=== PATIENT | female | born 1955 | race Hispanic/Latino ===

== ENCOUNTER 2017-09-20 15:00 | Inpatient (IN) | payer OTHER ==
[~2017-09-20] VITALS: Ht 152.4 cm; Wt 66.3 kg
[2017-09-20 15:59] LABS: BASOPHILS % (AUTO) 0.2 % (0.0-5.0); EOSINOPHILS % (AUTO) 1.5 % (0.0-8.0); HEMATOCRIT 24.9 % (36-48); LYMPHOCYTES % (AUTO) 30.2 % (21.0-51.0); MEAN CORPUSCULAR HGB CONC 34.9 g/dL (32.0-36.0); MEAN CORPUSCULAR VOLUME 88.8 fL (79-99); MONOCYTES % (AUTO) 12.2 % (3.0-13.0); NEUTROPHILS % (AUTO) 55.9 % (40.0-77.0); PLATELET COUNT (AUTO) 54 K/uL (130-400); RED BLOOD CELL COUNT(AUTO) 2.81 MIL/uL (4.00-5.50); RED CELL DISTRIBUTION WIDTH 21.1 % (11.0-15.5); WHITE BLOOD COUNT (AUTO) 4.4 K/uL (4.8-10.8)
[2017-09-20 16:05] LABS: APPEARANCE,URINE Clear (CLEAR); BILIRUBIN,URINE Negative (NEGATIVE); COLOR,URINE Yellow (YELLOW); GLUCOSE, URINE (UA) Negative (NEGATIVE); KETONES,URINE Negative (NEGATIVE); LEUKOCYTE ESTERASE ,URINE Large (NEGATIVE); NITRATE,URINE Negative (NEGATIVE); OCCULT BLOOD,URINE Negative (NEGATIVE); PH,URINE 7.5 (5.0-8.0); PROTEIN,URINE Negative (NEGATIVE)
[2017-09-20 16:06] LABS: CREATININE 0.6 mg/dL (0.5-1.5); INR 1.23 (0.85-1.15); PARTIAL THROMBOPLASTIN TIME 28.5 SEC (26.3-35.5); POTASSIUM 4.2 mmol/L (3.5-5.1); PROTHROMBIN TIME 12.9 SEC (9.6-11.6)
[2017-09-20 16:11] LABS: ALBUMIN 2.4 g/dL (3.5-5.0); BILIRUBIN,TOTAL 1.8 mg/dL (0.2-1.0); TOTAL PROTEIN, SERUM 6.5 g/dL (6.0-8.3)
[2017-09-20 16:12] LABS: BACTERIA,URINE None Seen /HPF (None Seen); RBC,URINE None Seen /HPF (0-1)
[2017-09-20 16:14] LABS: PLATELET MORPHOLOGY COMMENT DECREASED
[2017-09-20 16:18] LABS: B-TYPE NATRIURETIC PEPTIDE 68 pg/mL (0-100)
[2017-09-20] MEDS ORDERED: VANCOMYCIN 1GM+NS 250ML 250 ML IV SCH (16:45)
[2017-09-20] MEDS ORDERED: MORPHINE SULFATE 4 MG/1ML SYG ONE (17:03)
[2017-09-20] MEDS ORDERED: ONDANSETRON HCL 4 MG/2 ML VIAL ONE (17:03)
[2017-09-20] MEDS ORDERED: VANCOMYCIN 1GM+NS 250ML 250 ML IV ONE (17:46)
[2017-09-20 20:53] VITALS: BP 135/78
[2017-09-20] MEDS: FAMOTIDINE 20MG TAB 20 MG TAB PO SCH (21:15)
[2017-09-20] MEDS: FOLIC ACID/VITAMIN B COMP W-C 1 MG CAPSULE PO SCH (21:15)
[2017-09-20] MEDS ORDERED: ONDANSETRON HCL MDV 20ML 2 MG/ML VIAL IVP PRN (21:30)
[2017-09-20 23:00] VITALS: BP 128/69
[2017-09-20] MEDS ORDERED: FERS325 PO (23:38)
[2017-09-20] MEDS ORDERED: METF500T6 PO (23:38)
[2017-09-20] MEDS ORDERED: MVIT PO (23:38)
[2017-09-21] MEDS ORDERED: DEXTROSE 50%-WATER 50 ML DISP.SYRIN IV PRN (00:30)
[2017-09-21] MEDS ORDERED: GLUCAGON 1MG KIT 1 MG ML IM PRN (00:30)
[2017-09-21] MEDS ORDERED: VANCOMYCIN PROTOCOL PER PHARMACY IV SCH (00:30)
[2017-09-21] MEDS ORDERED: VANCOMYCIN 1GM+NS 250ML 250 ML IV SCH ×2 (01:00→17:00)
[2017-09-21 03:00] VITALS: BP 116/63
[2017-09-21] MEDS: INSULIN R PO SS2 SQ SCH ×4 (06:01→20:17)
[2017-09-21 06:06] LABS: HEMATOCRIT 22.3 % (36-48); MEAN CORPUSCULAR HEMOGLOBIN 30.2 pg (27.0-33.0); MEAN CORPUSCULAR HGB CONC 33.9 g/dL (32.0-36.0); MEAN CORPUSCULAR VOLUME 89.3 fL (79-99); PLATELET COUNT (AUTO) 47 K/uL (130-400); RED CELL DISTRIBUTION WIDTH 21.2 % (11.0-15.5); WHITE BLOOD COUNT (AUTO) 3.3 K/uL (4.8-10.8)
[2017-09-21 06:18] LABS: CREATININE 0.6 mg/dL (0.5-1.5); POTASSIUM 4.1 mmol/L (3.5-5.1)
[2017-09-21 08:05] VITALS: BP 125/70
[2017-09-21] MEDS: VANCOMYCIN 1GM+NS 250ML 250 ML IV SCH ×2 (08:26→20:16)
[2017-09-21] MEDS: FERROUS SULFATE 325 MG TABLET.DR PO SCH ×2 (08:27→20:16)
[2017-09-21] MEDS ORDERED: ENOXAPARIN SODIUM 40 MG/0.4 ML SYRINGE SQ SCH (09:00)
[2017-09-21 12:03] VITALS: BP 115/64
[2017-09-21 16:27] VITALS: BP 118/58
[2017-09-21] MEDS: ACETAMINOPHEN 325 MG TAB PO PRN ×2 (17:10→20:38)
[2017-09-21 19:00] VITALS: BP 119/55
[2017-09-21 23:00] VITALS: BP 114/59
[2017-09-22 03:00] VITALS: BP 125/64
[2017-09-22] MEDS: INSULIN R PO SS2 SQ SCH ×4 (05:36→21:00)
[2017-09-22 05:47] LABS: BASOPHILS % (AUTO) 0.4 % (0.0-5.0); EOSINOPHILS % (AUTO) 2.3 % (0.0-8.0); HEMATOCRIT 22.3 % (36-48); LYMPHOCYTES % (AUTO) 31.5 % (21.0-51.0); MEAN CORPUSCULAR HEMOGLOBIN 30.9 pg (27.0-33.0); MEAN CORPUSCULAR HGB CONC 34.7 g/dL (32.0-36.0); MEAN CORPUSCULAR VOLUME 89.1 fL (79-99); NEUTROPHILS % (AUTO) 50.8 % (40.0-77.0); NUCLEATED RED BLOOD CELLS 0.1 % (0.0-0.19); PLATELET COUNT (AUTO) 46 K/uL (130-400); RED CELL DISTRIBUTION WIDTH 20.7 % (11.0-15.5); WHITE BLOOD COUNT (AUTO) 2.4 K/uL (4.8-10.8)
[2017-09-22 05:48] LABS: CREATININE 0.6 mg/dL (0.5-1.5); POTASSIUM 3.5 mmol/L (3.5-5.1)
[2017-09-22] MEDS: FOLIC ACID/VITAMIN B COMP W-C 1 MG CAPSULE PO SCH ×2 (06:11→21:15)
[2017-09-22] MEDS: FAMOTIDINE 20MG TAB 20 MG TAB PO SCH ×2 (06:11→21:15)
[2017-09-22 07:35] LABS: BAND NEUTROPHILS % (MANUAL) 2 % (0-2); LYMPHOCYTES % (MANUAL) 21 % (22-44); MAN.DIFF COMMENT-IMPRESSION MANUAL DIFFERENTIAL; MONOCYTES % (MANUAL) 14 % (2-9); SEGMENTED NEUTROPHILS % 63 % (40-70)
[2017-09-22 08:03] VITALS: BP 128/67
[2017-09-22] MEDS: FERROUS SULFATE 325 MG TABLET.DR PO SCH ×2 (08:37→22:57)
[2017-09-22] MEDS: VANCOMYCIN 1GM+NS 250ML 250 ML IV SCH (08:37)
[2017-09-22 11:24] VITALS: BP 122/72
[2017-09-22] MEDS: ZOSYN 3.375GM+NS 50ML 50 ML IV SCH ×2 (12:20→22:56)
[2017-09-22 16:24] VITALS: BP 112/52
[2017-09-22] MEDS: DOXYCYCLINE 100MG+NS 250ML 250 ML IV SCH (18:19)
[2017-09-22 18:53] VITALS: BP 133/60
[2017-09-22] MEDS ORDERED: LIDOCAINE HCL-MPF 1% 2ML VIAL IVP PRN (21:00)
[2017-09-22] MEDS ORDERED: POTASSIUM CHLORIDE 10% ELIXIR 20 MEQ/15 ML UDCUP PO PRN (21:00)
[2017-09-22] MEDS ORDERED: POTASSIUM CHLORIDE 20MEQ/100ML 100 ML IV PRN (21:00)
[2017-09-22] MEDS ORDERED: COMPOUND IV REFRIGERATED 1 EACH IVSOLN MISC PRN (21:15)
[2017-09-22] MEDS: VANCOMYCIN 1.25 GM in SODIUM CHLORIDE 0.9% 250 ML IV SCH (22:57)
[2017-09-22] MEDS: POTASSIUM CHLORIDE 20 MEQ ERTAB PO PRN (22:59)
[2017-09-22] MEDS: ACETAMINOPHEN 325 MG TAB PO PRN (23:27)
[2017-09-23] VITALS: BP 113/65
[2017-09-23 04:00] VITALS: BP 104/58
[2017-09-23] MEDS: ZOSYN 3.375GM+NS 50ML 50 ML IV SCH ×3 (04:46→20:59)
[2017-09-23] MEDS: DOXYCYCLINE 100MG+NS 250ML 250 ML IV SCH ×2 (04:46→15:50)
[2017-09-23 05:02] LABS: BASOPHILS % (AUTO) 0.2 % (0.0-5.0); EOSINOPHILS % (AUTO) 2.2 % (0.0-8.0); HEMATOCRIT 23.2 % (36-48); LYMPHOCYTES % (AUTO) 33.8 % (21.0-51.0); MEAN CORPUSCULAR HEMOGLOBIN 30.3 pg (27.0-33.0); MEAN CORPUSCULAR HGB CONC 33.8 g/dL (32.0-36.0); MEAN CORPUSCULAR VOLUME 89.7 fL (79-99); MONOCYTES % (AUTO) 13.7 % (3.0-13.0); NEUTROPHILS % (AUTO) 50.1 % (40.0-77.0); NUCLEATED RED BLOOD CELLS 0.1 % (0.0-0.19); PLATELET COUNT (AUTO) 45 K/uL (130-400); RED BLOOD CELL COUNT(AUTO) 2.59 MIL/uL (4.00-5.50); RED CELL DISTRIBUTION WIDTH 20.9 % (11.0-15.5); WHITE BLOOD COUNT (AUTO) 3.1 K/uL (4.8-10.8)
[2017-09-23 05:09] LABS: CREATININE 0.7 mg/dL (0.5-1.5); POTASSIUM 3.8 mmol/L (3.5-5.1)
[2017-09-23] MEDS: INSULIN R PO SS2 SQ SCH ×4 (05:40→20:59)
[2017-09-23 07:57] VITALS: BP 113/60
[2017-09-23] MEDS: FERROUS SULFATE 325 MG TABLET.DR PO SCH (08:27)
[2017-09-23] MEDS: VANCOMYCIN 1.25 GM in SODIUM CHLORIDE 0.9% 250 ML IV SCH ×2 (08:28→20:59)
[2017-09-23 11:48] VITALS: BP 120/67
[2017-09-23 16:24] VITALS: BP 114/54
[2017-09-23 20:00] VITALS: BP 123/63
[2017-09-23] MEDS: FOLIC ACID/VITAMIN B COMP W-C 1 MG CAPSULE PO SCH (21:00)
[2017-09-23] MEDS: FAMOTIDINE 20MG TAB 20 MG TAB PO SCH (21:00)
[2017-09-24] VITALS (7 sets, daily range): BP systolic 109–133; BP diastolic 56–75
[2017-09-24 03:17] LABS: BASOPHILS % (AUTO) 0.2 % (0.0-5.0); EOSINOPHILS % (AUTO) 2.5 % (0.0-8.0); HEMATOCRIT 22.4 % (36-48); LYMPHOCYTES % (AUTO) 29.7 % (21.0-51.0); MEAN CORPUSCULAR HEMOGLOBIN 31.3 pg (27.0-33.0); MEAN CORPUSCULAR VOLUME 89.4 fL (79-99); MONOCYTES % (AUTO) 11.9 % (3.0-13.0); NEUTROPHILS % (AUTO) 55.7 % (40.0-77.0); PLATELET COUNT (AUTO) 43 K/uL (130-400); WHITE BLOOD COUNT (AUTO) 3.7 K/uL (4.8-10.8)
[2017-09-24 03:29] LABS: CREATININE 0.6 mg/dL (0.5-1.5); POTASSIUM 3.8 mmol/L (3.5-5.1)
[2017-09-24] MEDS: ZOSYN 3.375GM+NS 50ML 50 ML IV SCH ×3 (03:55→23:04)
[2017-09-24] MEDS: DOXYCYCLINE 100MG+NS 250ML 250 ML IV SCH ×2 (03:55→15:13)
[2017-09-24] MEDS: ACETAMINOPHEN 325 MG TAB PO PRN (04:24)
[2017-09-24] MEDS: INSULIN R PO SS2 SQ SCH ×4 (06:07→21:00)
[2017-09-24] MEDS: VANCOMYCIN 1.25 GM in SODIUM CHLORIDE 0.9% 250 ML IV SCH ×2 (09:03→23:04)
[2017-09-24] MEDS: FERROUS SULFATE 325 MG TABLET.DR PO SCH ×2 (09:04→23:04)
[2017-09-24] MEDS: FAMOTIDINE 20MG TAB 20 MG TAB PO SCH (21:15)
[2017-09-24] MEDS: FOLIC ACID/VITAMIN B COMP W-C 1 MG CAPSULE PO SCH (21:15)
[2017-09-25 03:34] VITALS: BP 107/55
[2017-09-25] MEDS: DOXYCYCLINE 100MG+NS 250ML 250 ML IV SCH ×2 (03:45→15:19)
[2017-09-25] MEDS: ZOSYN 3.375GM+NS 50ML 50 ML IV SCH ×3 (04:00→20:50)
[2017-09-25 04:30] LABS: BASOPHILS % (AUTO) 0.3 % (0.0-5.0); EOSINOPHILS % (AUTO) 2.4 % (0.0-8.0); HEMATOCRIT 23.1 % (36-48); LYMPHOCYTES % (AUTO) 27.3 % (21.0-51.0); MEAN CORPUSCULAR HEMOGLOBIN 30.4 pg (27.0-33.0); MEAN CORPUSCULAR HGB CONC 33.9 g/dL (32.0-36.0); MEAN CORPUSCULAR VOLUME 89.7 fL (79-99); MONOCYTES % (AUTO) 10.8 % (3.0-13.0); NEUTROPHILS % (AUTO) 59.2 % (40.0-77.0); NUCLEATED RED BLOOD CELLS 0.1 % (0.0-0.19); PLATELET COUNT (AUTO) 51 K/uL (130-400); RED BLOOD CELL COUNT(AUTO) 2.58 MIL/uL (4.00-5.50); RED CELL DISTRIBUTION WIDTH 21.8 % (11.0-15.5); WHITE BLOOD COUNT (AUTO) 3.5 K/uL (4.8-10.8)
[2017-09-25 04:42] LABS: CREATININE 0.6 mg/dL (0.5-1.5); POTASSIUM 3.7 mmol/L (3.5-5.1)
[2017-09-25] MEDS: INSULIN R PO SS2 SQ SCH ×4 (07:15→21:00)
[2017-09-25 07:59] VITALS: BP 114/57
[2017-09-25] MEDS ORDERED: VANCOMYCIN 1.5 GM in SODIUM CHLORIDE 0.9% 250 ML IV SCH (09:22)
[2017-09-25] MEDS: FERROUS SULFATE 325 MG TABLET.DR PO SCH ×2 (09:26→20:49)
[2017-09-25] MEDS ORDERED: VANCOMYCIN 1.25 GM in SODIUM CHLORIDE 0.9% 250 ML IV SCH (09:30)
[2017-09-25] MEDS: VANCOMYCIN 1.25 GM in SODIUM CHLORIDE 0.9% 250 ML IV SCH (09:31)
[2017-09-25 11:29] VITALS: BP 114/56
[2017-09-25 16:32] VITALS: BP 122/59
[2017-09-25 19:35] VITALS: BP 135/72
[2017-09-25] MEDS: FOLIC ACID/VITAMIN B COMP W-C 1 MG CAPSULE PO SCH (21:15)
[2017-09-25] MEDS: FAMOTIDINE 20MG TAB 20 MG TAB PO SCH (22:41)
[2017-09-25] MEDS: VANCOMYCIN 1.5 GM in SODIUM CHLORIDE 0.9% 250 ML IV SCH (22:43)
[2017-09-26 00:05] VITALS: BP 127/69
[2017-09-26 03:48] VITALS: BP 125/66
[2017-09-26] MEDS: DOXYCYCLINE 100MG+NS 250ML 250 ML IV SCH ×2 (04:04→16:45)
[2017-09-26] MEDS: ZOSYN 3.375GM+NS 50ML 50 ML IV SCH ×3 (04:04→20:17)
[2017-09-26 04:15] LABS: INR 1.35 (0.85-1.15); PARTIAL THROMBOPLASTIN TIME 30.1 SEC (26.3-35.5); PROTHROMBIN TIME 14.1 SEC (9.6-11.6)
[2017-09-26] MEDS: INSULIN R PO SS2 SQ SCH ×4 (06:17→21:00)
[2017-09-26 08:00] VITALS: BP 136/69
[2017-09-26] MEDS ORDERED: FENTANYL CITRATE PF 50 MCG/1 ML 2ML VIAL ONE (11:41)
[2017-09-26] MEDS: FERROUS SULFATE 325 MG TABLET.DR PO SCH ×2 (12:37→20:16)
[2017-09-26] MEDS: VANCOMYCIN 1.5 GM in SODIUM CHLORIDE 0.9% 250 ML IV SCH ×2 (12:37→23:18)
[2017-09-26] MEDS ORDERED: LIDOCAINE HCL 1% 20 ML VIAL ONE (12:46)
[2017-09-26 13:13] VITALS: BP 116/63
[2017-09-26 16:00] VITALS: BP 120/71
[2017-09-26 19:00] VITALS: BP 128/69
[2017-09-26] MEDS: FOLIC ACID/VITAMIN B COMP W-C 1 MG CAPSULE PO SCH (21:15)
[2017-09-26] MEDS: FAMOTIDINE 20MG TAB 20 MG TAB PO SCH (21:15)
[2017-09-27] VITALS: BP 110/71
[2017-09-27] MEDS: DOXYCYCLINE 100MG+NS 250ML 250 ML IV SCH ×2 (03:53→14:58)
[2017-09-27 04:00] VITALS: BP 124/68
[2017-09-27] MEDS: ZOSYN 3.375GM+NS 50ML 50 ML IV SCH (04:03)
[2017-09-27] MEDS: INSULIN R PO SS2 SQ SCH ×4 (07:30→21:00)
[2017-09-27 08:00] VITALS: BP 125/68
[2017-09-27] MEDS: VANCOMYCIN 1.5 GM in SODIUM CHLORIDE 0.9% 250 ML IV SCH ×2 (08:50→20:50)
[2017-09-27] MEDS: FERROUS SULFATE 325 MG TABLET.DR PO SCH ×2 (08:50→20:49)
[2017-09-27 11:35] VITALS: BP 122/68
[2017-09-27 15:53] VITALS: BP 134/66
[2017-09-27 19:20] VITALS: BP 148/68
[2017-09-27] MEDS: FOLIC ACID/VITAMIN B COMP W-C 1 MG CAPSULE PO SCH (19:58)
[2017-09-27] MEDS: FAMOTIDINE 20MG TAB 20 MG TAB PO SCH (19:58)
[2017-09-28 00:15] VITALS: BP 123/68
[2017-09-28 04:15] VITALS: BP 120/62
[2017-09-28] MEDS: DOXYCYCLINE 100MG+NS 250ML 250 ML IV SCH ×2 (04:29→15:52)
[2017-09-28] MEDS: INSULIN R PO SS2 SQ SCH ×4 (06:28→21:00)
[2017-09-28 08:00] VITALS: BP 145/63
[2017-09-28] MEDS: VANCOMYCIN 1.5 GM in SODIUM CHLORIDE 0.9% 250 ML IV SCH ×2 (08:42→21:02)
[2017-09-28] MEDS: FERROUS SULFATE 325 MG TABLET.DR PO SCH ×2 (08:42→21:02)
[2017-09-28 11:49] VITALS: BP 151/65
[2017-09-28 16:00] VITALS: BP 147/61
[2017-09-28] MEDS: ACETAMINOPHEN 325 MG TAB PO PRN (16:48)
[2017-09-28 19:00] VITALS: BP 120/47
[2017-09-29] VITALS (7 sets, daily range): BP systolic 117–152; BP diastolic 58–87
[2017-09-29] MEDS: DOXYCYCLINE 100MG+NS 250ML 250 ML IV SCH ×2 (04:54→17:07)
[2017-09-29 05:55] LABS: HEMATOCRIT 24.2 % (36-48); MEAN CORPUSCULAR HEMOGLOBIN 30.6 pg (27.0-33.0); MEAN CORPUSCULAR HGB CONC 33.6 g/dL (32.0-36.0); PLATELET COUNT (AUTO) 45 K/uL (130-400); RED BLOOD CELL COUNT(AUTO) 2.66 MIL/uL (4.00-5.50); RED CELL DISTRIBUTION WIDTH 21.2 % (11.0-15.5)
[2017-09-29 06:11] LABS: POTASSIUM 3.6 mmol/L (3.5-5.1)
[2017-09-29] MEDS: INSULIN R PO SS2 SQ SCH ×4 (06:47→21:00)
[2017-09-29 08:06] LABS: BAND NEUTROPHILS % (MANUAL) 1 % (0-2); BASOPHILS % (MANUAL) 1 % (0-2); LYMPHOCYTES % (MANUAL) 17 % (22-44); MAN.DIFF COMMENT-IMPRESSION MANUAL DIFFERENTIAL; MONOCYTES % (MANUAL) 14 % (2-9); SEGMENTED NEUTROPHILS % 67 % (40-70)
[2017-09-29] MEDS: VANCOMYCIN 1.5 GM in SODIUM CHLORIDE 0.9% 250 ML IV SCH (09:00)
[2017-09-29] MEDS: FERROUS SULFATE 325 MG TABLET.DR PO SCH ×2 (09:49→22:00)
[2017-09-29] MEDS: POTASSIUM CHLORIDE 20 MEQ ERTAB PO PRN (09:49)
[2017-09-29] MEDS: ACETAMINOPHEN 325 MG TAB PO PRN (09:59)
[2017-09-29] MEDS ORDERED: VANCOMYCIN 1.25 GM in SODIUM CHLORIDE 0.9% 250 ML IV ONE (21:30)
[2017-09-30 04:00] VITALS: BP 130/73
[2017-09-30] MEDS: DOXYCYCLINE 100MG+NS 250ML 250 ML IV SCH ×2 (04:33→15:24)
[2017-09-30] MEDS: INSULIN R PO SS2 SQ SCH ×4 (06:07→22:23)
[2017-09-30 08:25] VITALS: BP 146/77
[2017-09-30] MEDS: FERROUS SULFATE 325 MG TABLET.DR PO SCH ×2 (08:42→20:13)
[2017-09-30] MEDS: ACETAMINOPHEN 325 MG TAB PO PRN ×2 (08:43→23:46)
[2017-09-30 11:55] VITALS: BP 121/67
[2017-09-30] MEDS ORDERED: IOPAMIDOL-370 75 ML VIAL IV ONE (13:51)
[2017-09-30 16:21] VITALS: BP 139/76
[2017-09-30] MEDS: VANCOMYCIN 1.25 GM in SODIUM CHLORIDE 0.9% 250 ML IV SCH (17:50)
[2017-09-30 19:55] VITALS: BP 145/80
[2017-10-01] VITALS: BP 157/73
[2017-10-01] MEDS: DOXYCYCLINE 100MG+NS 250ML 250 ML IV SCH ×2 (03:36→17:44)
[2017-10-01 04:00] VITALS: BP 109/57
[2017-10-01] MEDS: INSULIN R PO SS2 SQ SCH ×4 (06:12→20:10)
[2017-10-01 08:07] VITALS: BP 129/60
[2017-10-01] MEDS: MEGESTROL 400 MG/10 ML UDCUP PO SCH (09:19)
[2017-10-01] MEDS: FERROUS SULFATE 325 MG TABLET.DR PO SCH ×2 (09:19→20:47)
[2017-10-01 11:46] VITALS: BP 144/74
[2017-10-01 16:59] VITALS: BP 131/69
[2017-10-01] MEDS: VANCOMYCIN 1.25 GM in SODIUM CHLORIDE 0.9% 250 ML IV SCH (18:45)
[2017-10-01 20:00] VITALS: BP 145/68
[2017-10-01] MEDS: ACETAMINOPHEN 325 MG TAB PO PRN (22:35)
[2017-10-02] VITALS: BP_SYST 122; BP_SYST 137; BP_DIAS 64
[2017-10-02] MEDS: DOXYCYCLINE 100MG+NS 250ML 250 ML IV SCH ×2 (03:56→15:24)
[2017-10-02 04:00] VITALS: BP 110/60
[2017-10-02 04:15] LABS: BASOPHILS % (AUTO) 0.1 % (0.0-5.0); EOSINOPHILS % (AUTO) 3.7 % (0.0-8.0); HEMATOCRIT 22.3 % (36-48); LYMPHOCYTES % (AUTO) 25.1 % (21.0-51.0); MEAN CORPUSCULAR HEMOGLOBIN 31.7 pg (27.0-33.0); MEAN CORPUSCULAR HGB CONC 34.6 g/dL (32.0-36.0); MEAN CORPUSCULAR VOLUME 91.7 fL (79-99); MONOCYTES % (AUTO) 19.4 % (3.0-13.0); NEUTROPHILS % (AUTO) 51.7 % (40.0-77.0); PLATELET COUNT (AUTO) 31 K/uL (130-400); RED BLOOD CELL COUNT(AUTO) 2.43 MIL/uL (4.00-5.50); RED CELL DISTRIBUTION WIDTH 20.7 % (11.0-15.5); WHITE BLOOD COUNT (AUTO) 1.8 K/uL (4.8-10.8)
[2017-10-02 04:26] LABS: ALBUMIN 1.9 g/dL (3.5-5.0); BILIRUBIN,TOTAL 0.9 mg/dL (0.2-1.0); CREATININE 1.3 mg/dL (0.5-1.5); MAGNESIUM 1.7 mg/dL (1.80-2.40); POTASSIUM 3.8 mmol/L (3.5-5.1); TOTAL PROTEIN, SERUM 5.8 g/dL (6.0-8.3)
[2017-10-02] MEDS: INSULIN R PO SS2 SQ SCH ×4 (05:39→21:00)
[2017-10-02 08:03] VITALS: BP 122/69
[2017-10-02 09:03] LABS: INR 1.37 (0.85-1.15); PARTIAL THROMBOPLASTIN TIME 33.6 SEC (26.3-35.5); PROTHROMBIN TIME 14.3 SEC (9.6-11.6)
[2017-10-02] MEDS: FERROUS SULFATE 325 MG TABLET.DR PO SCH ×2 (09:26→21:07)
[2017-10-02] MEDS: MEGESTROL 400 MG/10 ML UDCUP PO SCH (09:26)
[2017-10-02 12:24] VITALS: BP 132/71
[2017-10-02] MEDS ORDERED: MAGNESIUM 2GM PREMIX 50ML 50 ML IV SCH (14:15)
[2017-10-02 17:07] VITALS: BP 123/63
[2017-10-02 19:00] VITALS: BP 143/79
[2017-10-02] MEDS: VANCOMYCIN 1.25 GM in SODIUM CHLORIDE 0.9% 250 ML IV SCH (19:08)
[2017-10-03] VITALS (12 sets, daily range): BP systolic 121–148; BP diastolic 60–86
[2017-10-03] MEDS: ACETAMINOPHEN 325 MG TAB PO PRN (00:14)
[2017-10-03] MEDS ORDERED: SODIUM CHLORIDE 0.9% 250 ML IV ONE ×2 (01:37→06:14)
[2017-10-03] MEDS: DOXYCYCLINE 100MG+NS 250ML 250 ML IV SCH (04:44)
[2017-10-03] MEDS: INSULIN R PO SS2 SQ SCH ×4 (07:03→21:00)
[2017-10-03 07:11] LABS: MAGNESIUM 1.9 mg/dL (1.80-2.40); POTASSIUM 3.8 mmol/L (3.5-5.1)
[2017-10-03 08:29] LABS: MEAN CORPUSCULAR HEMOGLOBIN 30.6 pg (27.0-33.0); MEAN CORPUSCULAR HGB CONC 33.3 g/dL (32.0-36.0); MEAN CORPUSCULAR VOLUME 92.2 fL (79-99); PLATELET COUNT (AUTO) 29 K/uL (130-400); RED BLOOD CELL COUNT(AUTO) 2.72 MIL/uL (4.00-5.50); RED CELL DISTRIBUTION WIDTH 20.6 % (11.0-15.5); WHITE BLOOD COUNT (AUTO) 2.4 K/uL (4.8-10.8)
[2017-10-03 09:25] LABS: EOSINOPHILS % (MANUAL) 7 % (1-6); LYMPHOCYTES % (MANUAL) 12 % (22-44); MAN.DIFF COMMENT-IMPRESSION MANUAL DIFFERENTIAL; MONOCYTES % (MANUAL) 16 % (2-9); SEGMENTED NEUTROPHILS % 65 % (40-70)
[2017-10-03] MEDS: FERROUS SULFATE 325 MG TABLET.DR PO SCH ×2 (11:57→21:19)
[2017-10-03] MEDS: MEGESTROL 400 MG/10 ML UDCUP PO SCH (12:00)
[2017-10-03 17:18] LABS: APPEARANCE BODY FLUID CLEAR (CLEAR); COLOR,BODY FLUID LT YELLOW (LT YELLOW); SPECIMENTYPE,BODY FLUID ASCITES; TOTAL VOLUME,BODY FLUID 1600 mL
[2017-10-03] MEDS: VANCOMYCIN 1.25 GM in SODIUM CHLORIDE 0.9% 250 ML IV SCH (17:19)
[2017-10-03 17:26] LABS: BODY FLUID RBC 1475 /cu. mm.; BODY FLUID WBC 76 /cu. mm.
[2017-10-03 18:18] LABS: BF LYMPHOCYTE 40 %; BF MESOTHELIAL 8 %; BF MONOCYTE 41 %; BF OTHER CELLS 1
[2017-10-03] MEDS: SPIRONOLACTONE 25 MG TAB PO SCH (21:19)
[2017-10-04] MEDS: ACETAMINOPHEN 325 MG TAB PO PRN ×2 (02:41→22:35)
[2017-10-04 03:00] VITALS: BP 137/65
[2017-10-04 04:24] LABS: HEMATOCRIT 21.5 % (36-48); MEAN CORPUSCULAR HEMOGLOBIN 32.8 pg (27.0-33.0); MEAN CORPUSCULAR HGB CONC 35.9 g/dL (32.0-36.0); MEAN CORPUSCULAR VOLUME 91.5 fL (79-99); PLATELET COUNT (AUTO) 27 K/uL (130-400); RED BLOOD CELL COUNT(AUTO) 2.35 MIL/uL (4.00-5.50); RED CELL DISTRIBUTION WIDTH 20.2 % (11.0-15.5)
[2017-10-04 04:37] LABS: ALBUMIN 2.1 g/dL (3.5-5.0); CREATININE 1.1 mg/dL (0.5-1.5); POTASSIUM 3.9 mmol/L (3.5-5.1); TOTAL PROTEIN, SERUM 5.9 g/dL (6.0-8.3)
[2017-10-04] MEDS: INSULIN R PO SS2 SQ SCH ×4 (06:54→22:40)
[2017-10-04 08:31] VITALS: BP 116/62
[2017-10-04] MEDS: FERROUS SULFATE 325 MG TABLET.DR PO SCH ×2 (11:06→22:34)
[2017-10-04] MEDS: SPIRONOLACTONE 25 MG TAB PO SCH ×2 (11:06→22:34)
[2017-10-04] MEDS: MEGESTROL 400 MG/10 ML UDCUP PO SCH (11:06)
[2017-10-04 11:40] VITALS: BP 120/64
[2017-10-04] MEDS ORDERED: DIATR MEGLU/DIATRIZOATE SODIUM 30 ML BOTTLE ONE (14:15)
[2017-10-04] MEDS ORDERED: IOPAMIDOL-370 75 ML VIAL IV ONE (14:15)
[2017-10-04 15:59] VITALS: BP 135/68
[2017-10-04] MEDS: VANCOMYCIN 1.25 GM in SODIUM CHLORIDE 0.9% 250 ML IV SCH (18:36)
[2017-10-04 19:00] VITALS: BP 141/65
[2017-10-04 23:00] VITALS: BP 138/68
[2017-10-05 03:00] VITALS: BP 130/64
[2017-10-05] MEDS: INSULIN R PO SS2 SQ SCH ×4 (05:58→21:00)
[2017-10-05 06:42] LABS: BASOPHILS % (AUTO) 0.3 % (0.0-5.0); EOSINOPHILS % (AUTO) 4.3 % (0.0-8.0); HEMATOCRIT 23.9 % (36-48); LYMPHOCYTES % (AUTO) 22.6 % (21.0-51.0); MEAN CORPUSCULAR HEMOGLOBIN 32.2 pg (27.0-33.0); MEAN CORPUSCULAR HGB CONC 34.8 g/dL (32.0-36.0); MEAN CORPUSCULAR VOLUME 92.5 fL (79-99); MONOCYTES % (AUTO) 17.3 % (3.0-13.0); NEUTROPHILS % (AUTO) 55.5 % (40.0-77.0); NUCLEATED RED BLOOD CELLS 0.1 % (0.0-0.19); PLATELET COUNT (AUTO) 23 K/uL (130-400); RED BLOOD CELL COUNT(AUTO) 2.58 MIL/uL (4.00-5.50); RED CELL DISTRIBUTION WIDTH 20.3 % (11.0-15.5); WHITE BLOOD COUNT (AUTO) 2.3 K/uL (4.8-10.8)
[2017-10-05 08:00] VITALS: BP 151/76
[2017-10-05 08:38] LABS: BAND NEUTROPHILS % (MANUAL) 7 % (0-2); EOSINOPHILS % (MANUAL) 3 % (1-6); LYMPHOCYTES % (MANUAL) 25 % (22-44); METAMYELOCYTES % 4 % (0-0); MONOCYTES % (MANUAL) 4 % (2-9); MYELOCYTES % 4 % (0-0); PROMYELOCYTES % 5 (0-0); SEGMENTED NEUTROPHILS % 48 % (40-70)
[2017-10-05 08:40] LABS: MAN.DIFF COMMENT-IMPRESSION MANUAL DIFFERENTIAL
[2017-10-05 08:41] LABS: PLATELET MORPHOLOGY COMMENT MARKED DECREASED
[2017-10-05] MEDS: MEGESTROL 400 MG/10 ML UDCUP PO SCH (09:43)
[2017-10-05] MEDS: FERROUS SULFATE 325 MG TABLET.DR PO SCH ×2 (09:43→21:13)
[2017-10-05] MEDS: SPIRONOLACTONE 25 MG TAB PO SCH ×2 (09:43→21:13)
[2017-10-05 11:00] VITALS: BP 143/73
[2017-10-05 15:59] VITALS: BP 140/67
[2017-10-05] MEDS: VANCOMYCIN 1.25 GM in SODIUM CHLORIDE 0.9% 250 ML IV SCH (18:29)
[2017-10-05 20:00] VITALS: BP 155/80
[2017-10-05 23:49] VITALS: BP 150/72
[2017-10-06 03:26] VITALS: BP 154/75
[2017-10-06] MEDS: INSULIN R PO SS2 SQ SCH ×2 (06:10→11:30)
[2017-10-06 06:16] LABS: BASOPHILS % (AUTO) 0.6 % (0.0-5.0); HEMATOCRIT 23.4 % (36-48); LYMPHOCYTES % (AUTO) 24.4 % (21.0-51.0); MEAN CORPUSCULAR HEMOGLOBIN 31.7 pg (27.0-33.0); MEAN CORPUSCULAR HGB CONC 34.7 g/dL (32.0-36.0); MEAN CORPUSCULAR VOLUME 91.4 fL (79-99); MONOCYTES % (AUTO) 20.2 % (3.0-13.0); NEUTROPHILS % (AUTO) 48.8 % (40.0-77.0); NUCLEATED RED BLOOD CELLS 0.1 % (0.0-0.19); PLATELET COUNT (AUTO) 44 K/uL (130-400); RED BLOOD CELL COUNT(AUTO) 2.57 MIL/uL (4.00-5.50); RED CELL DISTRIBUTION WIDTH 20.1 % (11.0-15.5); WHITE BLOOD COUNT (AUTO) 2.3 K/uL (4.8-10.8)
[2017-10-06 06:25] LABS: POTASSIUM 4.1 mmol/L (3.5-5.1)
[2017-10-06 08:00] VITALS: BP 127/57
[2017-10-06] MEDS ORDERED: FUROSEMIDE 10 MG/ML 4ML VIAL IV SCH (09:00)
[2017-10-06] MEDS: FERROUS SULFATE 325 MG TABLET.DR PO SCH (09:03)
[2017-10-06] MEDS: MEGESTROL 400 MG/10 ML UDCUP PO SCH (09:03)
[2017-10-06] MEDS: SPIRONOLACTONE 25 MG TAB PO SCH (09:03)
[2017-10-06 11:00] VITALS: BP 131/67
[2017-10-06 16:00] VITALS: BP 120/61
== END 2017-10-06 18:35 | disposition home or self-care (01) | DRG 602 ==
LOC: EDH 15:00 → EDHIP 15:01 → 3CH 21:07
PROVIDERS: ADMIT Internal Medicine Nephrology; ATTEND Internal Medicine Nephrology
PROC: 30233R1 Transfusion of Nonautologous Platelets into Peripheral Vein, Percutaneous Approach (ICD-10-PCS; principal; 2017-09-22)
PROC: 07DR3ZX Extraction of Iliac Bone Marrow, Percutaneous Approach, Diagnostic (ICD-10-PCS; 2017-09-26)
PROC: 0W9G30Z Drainage of Peritoneal Cavity with Drainage Device, Percutaneous Approach (ICD-10-PCS; 2017-10-06)
DX: L03.116 Cellulitis of left lower limb (principal); E43 Unspecified severe protein-calorie malnutrition; N17.9 Acute kidney failure, unspecified; D61.818 Other pancytopenia; D69.6 Thrombocytopenia, unspecified; R18.8 Other ascites; D46.9 Myelodysplastic syndrome, unspecified; L02.416 Cutaneous abscess of left lower limb; E11.9 Type 2 diabetes mellitus without complications; E78.5 Hyperlipidemia, unspecified; E03.9 Hypothyroidism, unspecified; I10 Essential (primary) hypertension; K74.60 Unspecified cirrhosis of liver; Z60.2 Problems related to living alone; B95.61 Methicillin susceptible Staphylococcus aureus infection as the cause of diseases classified elsewhere; Z68.28 Body mass index [BMI] 28.0-28.9, adult; Z83.3 Family history of diabetes mellitus
CPT/HCPCS: 36415; 36430; 38222; 49083; 71045; 71046; 71260; 73701; 74177; 76700; 80048; 80053; 80202; 81001; 82948; 83615; 83735; 83880; 84157; 85025; 85027; 85300; 85610; 85670; 85730; 86606; 86612; 86635; 86698; 86850; 86900; 86901; 87040; 87070; 87071; 87076; 87205; 88108; 88305; 88311; 88313; 89051; 93306; 93970; J1650; J1815; J1940; J2270; J2405; J2543; J3010; J3370; J3475; J3480; J3490; J7030; P9034; Q9963; Q9967